=== PATIENT | female | born 1985 | race Caucasian/White ===

== ENCOUNTER 2016-12-24 21:16 | Emergency (ER) | payer MEDICAID ==
[2016-12-24 21:56] VITALS: BP 122/80
[2016-12-24] MEDS ORDERED: ONDANSETRON ODT 4 MG Prepack 2 TL STA (22:24)
--- NOTE | 2016-12-24 22:26 | ED Physician Documentation ---
History of Present Illness - Stated complaint Stated Complaint: NAUSEA - Chief complaint Chief Complaint: General - History obtained from History obtained from: Patient - History of Present Illness Timing: Other (She was driving this evening and felt sudden pain on the back of her left shoulder associated with nausea and body aches but no fevers or chills. No possibility of . She thinks she may have a bug bite.) Review of Systems Constitutional: reports: Myalgias. denies: Fever, Chills Nose: denies: Rhinorrhea / runny nose, Congestion GI: reports: Nausea. denies: Abdominal Pain, Vomiting, Diarrhea : reports: LMP (2 days ago). denies: Missed period, Now EGA Musculoskeletal: denies: Neck pain, Back pain PD PAST MEDICAL HISTORY - Present Medications Home Medications: Ambulatory Orders Medication Instructions Recorded Confirmed Ondansetron HCl [Zofran] 4 mg PO Q6H PRN #10 tablet 12/24/16 - Allergies Allergies/Adverse Reactions: Allergies Allergy/AdvReac Type Severity Reaction Status Date / Time doxycycline AdvReac Unknown Verified 12/24/16 21:47 PD ED PE NORMAL - Vitals Vital signs reviewed: Yes - General General: Alert and oriented X 3, No acute distress - HEENT HEENT: Pharynx benign - Neck Neck: Supple, no meningeal sign, No bony TTP - Derm Derm: Other (There is a small well-circumscribed area with erythema on the top of the posterior left shoulder consistent with a bug bite, no limited range of motion or pain out of proportion to exam.) - Neuro Neuro: Alert and oriented X 3, Normal speech - Psych Psych: Normal mood, Normal affect Results - Vitals Vitals: Vital Signs - 24 hr 12/24/16 21:41 Temperature 36.9 C Heart Rate 74 Respiratory 17 Rate Blood Pressure 122/80 O2 Saturation 99 Oxygen O2 Source Room air PD MEDICAL DECISION MAKING - ED course ED course: Seems like a bug bite this evening with some systemic symptoms, is considered but declined a test,It is not possible per her.She really just wanted something for nausea and evaluation for infection which is inconsistent with the timing of her symptoms. Departure - Departure Disposition: 01 Home, Self Care Clinical Impression: Bug bite Qualifiers: Encounter type: initial encounter Qualified Code(s): W57.XXXA - Bitten or stung by nonvenomous insect and other nonvenomous arthropods, initial encounter Condition: Good Record reviewed to determine appropriate education?: Yes Prescriptions: Ondansetron HCl [Zofran] 4 mg PO Q6H PRN #10 tablet PRN Reason: Nausea / Vomiting Comments: I suspect he will rapidly improve, return if worse or if not better in the next 36 hours. Anytime if you run a fever.
[2016-12-24] MEDS ORDERED: ONDANSETRON ODT 4 MG Prepack 2 TL ONE (22:38)
[2016-12-24 23:04] LABS: HCG UR QUAL NEGATIVE
== END 2016-12-24 23:09 | disposition home or self-care (01) ==
LOC: ED 21:16
DX: S40.262A Insect bite (nonvenomous) of left shoulder, initial encounter (principal); W57.XXXA Bitten or stung by nonvenomous insect and other nonvenomous arthropods, initial encounter; R11.0 Nausea
CPT/HCPCS: 81025; 99283